=== PATIENT | male | born 1965 | race Caucasian/White ===

== ENCOUNTER 2016-12-10 23:49 | Emergency (ER) | payer SELFPAY ==
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
== END 2016-12-11 01:35 | disposition home or self-care (01) ==
LOC: ER 23:49
PROC: 0HQ1XZZ Repair Face Skin, External Approach (ICD-10-PCS; principal; 2016-12-10)
DX: S01.81XA Laceration without foreign body of other part of head, initial encounter (principal); S05.12XA Contusion of eyeball and orbital tissues, left eye, initial encounter; S10.93XA Contusion of unspecified part of neck, initial encounter; F17.210 Nicotine dependence, cigarettes, uncomplicated; Y04.0XXA Assault by unarmed brawl or fight, initial encounter

== ENCOUNTER 2017-01-06 09:43 | Inpatient (IN) | payer OTHER ==
[~2017-01-06] VITALS: Ht 172.7 cm; Wt 79.5 kg
--- NOTE | ~2017-01-06 | INDIVTXPLN ---
"PATIENT: PUNEET FIGUEROA | | [facility] UNIT #: [id number] | [address] AGE/SEX: 51 M : [birth year] | [address] | [place] [address] ADMIT/REG DATE: 01/06/17 | ROOM: A[facility] LOC: ADTC | ADTC | Individualized Treatment Plan Date: 01/16/17 Problem Statement/Issue Identified: I have had difficult times with relationships. Goal: I want to be able to have healthy relationships. Objectives/Activities to achieve goal: 1. I will read and fill out a relationship packet and share it with my counselor. Due Date:01/23/17 Complete: Incomplete: Client signature Date Counselor signature Date Outcome/Measurement of Progress Towards Goal: Counselor's signature Date "
--- NOTE | ~2017-01-06 | INDIVTXPLN ---
"PATIENT: PUNEET FIGUEROA | | [facility] UNIT #: [id number] | [address] AGE/SEX: 51 M : 61 | [address] | [place] [address] ADMIT/REG DATE: 01/06/17 | ROOM: A.[facility] LOC: ADTC | ADTC | Individualized Treatment Plan Date: 01/27/17 Problem Statement/Issue Identified: I struggle with wanting to control everything around me even thing I can't. Goal: I want to be able to let go of things I can't control. Objectives/Activities to achieve goal: 1. I will read and high lite things I relate to in a letting go of control packet and share it with my counselor. Due Date:01/30/17 Complete: Incomplete: Client signature Date Counselor signature Date Outcome/Measurement of Progress Towards Goal: Counselor's signature Date "
--- NOTE | ~2017-01-06 | INDIVTXPLN ---
"PATIENT: PUNEET FIGUEROA | | [facility] UNIT #: [id number] | [address] AGE/SEX: 51 M : 61 | [address] | [place] [address] ADMIT/REG DATE: 01/06/17 | ROOM: [facility] LOC: ADTC | ADTC | Individualized Treatment Plan Date: 01/09/17 Problem Statement/Issue Identified: I continue to use drugs in spite of the negative consequences I am experiencing. Goal: I want to learn about my addiction and identify consequences of my use and learn to work the AA/NA program. Objectives/Activities to achieve goal: 1. I will read and fill out the Getting Started packet, identifying my feelings about being in treatment and identifying things I do now and things I need to work on as evidenced by his progress notes. Due Date:01/09/17 Complete: Incomplete: 2. I will read a Step 1 booklet and fill out a Step 1 packet identifying 20+ ways I have hurt others and compromised my values (page 10 - 11 of Step 1). This will also help me see how I am powerless and that my life has become unmanageable. I will share it with my counselor and selected parts in group as evidenced by individual and group notes. Due Date:01/13/17 Complete: Incomplete: 3. I will talk at a minimum of 2 meetings a week and get a phone number of a male sponsor I can call while I am in treatment on weekends. I will report my progress to my counselor as evidenced by individual notes. Due Date: Ongoing Complete: Incomplete: 4. I will create gratitude list and add one thing to it each day. Due Date: Ongoing Complete: Incomplete: Client signature Date Counselor signature Date Outcome/Measurement of Progress Towards Goal: Counselor's signature Date "
--- NOTE | ~2017-01-06 | CLPRLASSUM ---
"PATIENT: PUNEET FIGUEROA | | [facility] UNIT #: [id number] | [address] AGE/SEX: 51 M : 61 | [address] | [place] [address] ADMIT/REG DATE: 01/06/17 | ROOM: [facility] LOC: ADTC | ADTC | Client Problem List/Assessment Summary Date: 01/09/17 Problems identified by the client: Drug use, control issues, family issues and relapse issues. Problems identified by significant others: Client did not sign any releases for family at this time. Client's Strengths: Wants to stay sober. Problem List: Code: T Client needs to recognize difference between boundaries and controlling while increasing knowledge of the disease and the recovery process. Code: T Client has learned to deny or stuff feelings; needs to learn to identify and process feelings with safe people to acquire the necessary skills to maintain intermediate accountant sobriety. Code: T Client is experiencing family &/or significant other discord and distancing as a result of past alcohol &/or drug usage. Code: T Client needs to identify relapse warning signs and develop a plan to deal with them as they arise. Code Núñez: T: to be addressed during course of treatment O: problem noted, expected to resolve itself with abstinence--specific tx plan not required R: problem noted, will be referred upon discharge PRIMARY COUNSELOR: Hoang Dill, PHUC, LADC, CSAT"
--- NOTE | ~2017-01-06 | TXPLANREV ---
"PATIENT: PUNEET FIGUEROA | | [facility] UNIT #: [id number] | [address] AGE/SEX: 51 M : 61 | [address] | [place] [address] ADMIT/REG DATE: 01/06/17 | ROOM: [facility] LOC: ADTC | ADTC | Treatment Plan/Staffing Review Date: 01/23/17 Treatment plan was reviewed and determined appropriate as written: Yes Treatment plan was reviewed and the following changes/addition/deletions are necessary: No changes Discharge plans were reviewed and determined appropriate as previously documented: Yes Discharge plans were reviewed and determined to be as follows: Client is scheduled to discharge on 02/03/17 and we have discussed a 3/4 way house or half way house. Will continue to discuss. Other pertinent issues discussed during this staffing review include: Client continue to be open to looking at things he does not agree with. Staff Present: Mayuri Grijalva, Leah Peters PRIMARY COUNSELOR: Hoang Dill, PHUC, LADC, CSAT Client Signature Counselor Signature Date Time "
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
--- NOTE | ~2017-01-06 | INDIVTXPLN ---
"PATIENT: PUNEET FIGUEROA | | [facility] UNIT #: [id number] | [address] AGE/SEX: 51 M : 61 | [address] | [place] [address] ADMIT/REG DATE: 01/06/17 | ROOM: A.[facility] LOC: ADTC | ADTC | Individualized Treatment Plan Date: 01/20/17 Problem Statement/Issue Identified: Goal: Objectives/Activities to achieve goal: 1. Due Date: Complete: Incomplete: 2. Due Date: Complete: Incomplete: 3. Due Date: Complete: Incomplete: Client signature Date Counselor signature Date Outcome/Measurement of Progress Towards Goal: Counselor's signature Date "
--- NOTE | ~2017-01-06 | TXPLANREV ---
"PATIENT: PUNEET FIGUEROA | | [facility] UNIT #: [id number] | [address] AGE/SEX: 51 M : 61 | [address] | [place] [address] ADMIT/REG DATE: 01/06/17 | [facility]: [facility] | ADTC | Treatment Plan/Staffing Review Date: 01/16/17 Treatment plan was reviewed and determined appropriate as written: Yes Treatment plan was reviewed and the following changes/addition/deletions are necessary: No changes, client is working on step one. Discharge plans were reviewed and determined appropriate as previously documented: Yes Discharge plans were reviewed and determined to be as follows: Client is tentively scheduled to discharge on 02/03/17. An aftercare plan has not been discussed yet. Other pertinent issues discussed during this staffing review include: Client has had a positive attitude change since he first arrivwed in treatment. He is open to looking at things from a different point of view. Staff Present: Leah Little Connie Strand PRIMARY COUNSELOR: Hoang Dill, PHUC, LADC, CSAT Client Signature Counselor Signature Date Time "
--- NOTE | 2017-01-06 13:54 | NUR ---
ADMISSION NOTE Rights/Responsibilities: Copy given and explained to client. Signed and accepted by client. Client oriented to physical lay out of the ADTC unit, given Big Book and admission packet. A Patrick was assigned. Jimmy Client is a 51yr old single male. Referred to tx by probation. Lives in [place], [place]. DOC Meth, last used 11/24/16, 2 grams daily. No allergies, No meds. Sister will participate in tx. Was searched no contraband found. Initial paperwork given and guidelines gone over. Doctor has been notified.
--- NOTE | 2017-01-06 14:45 | NUR ---
I.S. 1 hr/Client shared he was suppose to be in OP but his UA's must not have been droping as he thinks it takes longer than three days for meth to get out of your system. First tx and is somewhat resistent to share about family or has nothing to work on. He is here just to jump through jose.
--- NOTE | 2017-01-06 16:00 | NUR ---
RECOVERY 101 1 HR/ Clients all filled out consequences list to look at each chemical they have ever used and how many consequences were experiences with each drug. Many shared what they learned from this and their top 3 consequences, they also discussed early stage symptoms of their addiction. Counselor asked the group what would be a definition that includes all stages and this was discussed as well at stages of Denial, Anger, Compliance/defiance, admittance, acceptance and Surrender.
--- NOTE | 2017-01-06 20:38 | NUR ---
Education: 1 Hour. Client attended lecture on "Adult Children of Alcoholics" presented by staff.
--- NOTE | 2017-01-06 22:58 | NUR ---
Tech Note: Client played a game for rec and attended the on unit N.A.Meeting. SE:_Coming to treatment.
--- NOTE | 2017-01-07 04:18 | NUR ---
Bed Note: Client was in bed, and motionless at all three bed checks.
--- NOTE | 2017-01-07 11:30 | NUR ---
GROUP 1.5 HRS. 1:10 Client was oriented to purpose and rules of group. Discussion included step 1 assignment and good-bye letter to addiction. This client was mostly quiet but did relate to peers as they shared about addiction and the consequences.
--- NOTE | 2017-01-07 13:12 | NUR ---
Tech Note: Nutritional Services presented information for the 1:00 speaker meeting. Client is working on Getting Started.
--- NOTE | 2017-01-07 16:23 | NUR ---
Relapse Prevention, 10/18, 1.0 hours, Client attended and actively participated in relapse prevention education which focused on top 5 relapse triggers and how to avoid them.
--- NOTE | 2017-01-07 17:36 | NUR ---
Education Note: Topic was "[place] From Shame" presented by Chloe.
--- NOTE | 2017-01-07 22:49 | NUR ---
TECH NOTE: Client did crafts/beads for REC and attended on site AA meeting. SE: walk
--- NOTE | 2017-01-08 04:00 | NUR ---
BED NOTE: Client was in bed, motionless with eyes closed all bed checks.
--- NOTE | 2017-01-08 10:43 | NUR ---
Rae notes: Client is working on BB and mtg with vish
--- NOTE | 2017-01-08 11:30 | NUR ---
GROUP 1.5 HRS. 1:9 Group discussion included step 1 assignments of identifying 15 examples of how betrayed values (pg. 10) and 10 specific examples of effects on others (pg. 11). This client fell asleep and was awakened and asked to stand. He was minimally involved and speaks softly under his breath.
--- NOTE | 2017-01-08 16:00 | NUR ---
Education 1 Hour: Client watched the video, "Marijuana" by Garland Ayon.
--- NOTE | 2017-01-08 17:24 | NUR ---
SPIRITUAL EDUCATION; Client's took [employer] again this week and improved their presentations took on new participants to replace those who weren't here this week, and presented their refined skits to those staff available to watch. Excellent presentations!
--- NOTE | 2017-01-08 19:06 | NUR ---
Education 1HR: Clt attended lecture given by counselor on boundaries.
--- NOTE | 2017-01-08 22:13 | NUR ---
Tech note : Client went for a long walk for rec and attended an onsite NA meeting. SE: Education
--- NOTE | 2017-01-09 04:04 | NUR ---
Bed note: Client was in bed motionless, with eyes closed at all bed checks.
--- NOTE | 2017-01-09 11:30 | NUR ---
AM GRP 1.5 HRS, Ratio 1:10/ Clt struggled to keep his mouth shut thru-out the grp. He has little side talking comments to say when most everyone is sharing. He is confrontive to a male peer, of whom he has several similarities, but does so in an angry manner.
--- NOTE | 2017-01-09 13:57 | NUR ---
I.S. 1 Hr/Client shared some of his GS packet and was very reluctqnt to share anything. He kept interupting and was asked to listen. He said Ok I will not say any more today. A couple minites later he interupted again so I asked him if he was a man of his word as he did not stay quiet and he got mad and left my office cutting the session short.
--- NOTE | 2017-01-09 14:08 | NUR ---
Information note/Clincyndie came back after leaving his session and aploigized and said he would work more on listening and be open minded.
--- NOTE | 2017-01-09 15:26 | NUR ---
Tech Note: Client participated in Spiritual Enrichment in the morning and went for an outdoor walk in the afternoon. Client stated that he is working on Step One.
--- NOTE | 2017-01-09 15:41 | NUR ---
Education 1 Hour: Client watched the video, "Doing a 4th and 5th Step" by Irene Lopez.
--- NOTE | 2017-01-09 19:11 | NUR ---
Education 1HR: Clt watched half of video "Pleasures Unwoven" with staff present.
--- NOTE | 2017-01-09 19:12 | NUR ---
Step education/1 hr/ Focus was on step 11 Sought through prayer and meditation to improve conscious contact with God,praying for his will for us and the power to carry that out. Each person completed a set of questions then we discussed. This person participated.
--- NOTE | 2017-01-09 23:04 | NUR ---
Tech note: Clt played a game for rec, attended GM and onsite AA mtg. SE was talking with peer.
--- NOTE | 2017-01-10 04:23 | NUR ---
Bed Note: Clt lay motionless in bed with eyes closed showing no distress at all bed checks.
--- NOTE | 2017-01-10 12:59 | NUR ---
Tech Note: Client is working on Step 1.
--- NOTE | 2017-01-10 13:00 | NUR ---
PEER REVIEWS 1 HR: Clt participated in peer reviews and took a risk to give open and honest feedback to those receiving a review.
--- NOTE | 2017-01-10 13:20 | NUR ---
Morning Group, /12 ratio, 1.5 hours, Client attended and actively participated in group. Client offered feedback to peers.
--- NOTE | 2017-01-10 15:32 | NUR ---
Education Note: Client watched 2nd half of Pleasure Unwoven.
--- NOTE | 2017-01-10 22:16 | NUR ---
Tech note : Client watched tv, played games with peers and walked to an offsite AA meeting.
--- NOTE | 2017-01-11 04:07 | NUR ---
Bed note: Client was in bed with eyes closed and no distress at all bed checks.
--- NOTE | 2017-01-11 16:26 | NUR ---
Tech Note: Client attended N.A.Panel and is working on Step 1. Client also went on a walk today.
--- NOTE | 2017-01-11 22:15 | NUR ---
Tech note : Client worked on WebNotes, Pickie or watched sports for rec this evening. Client walked to an offsite AA meeting.
--- NOTE | 2017-01-12 04:05 | NUR ---
Bed note: Client was in bed with eyes closed with no distress at all bed checks
--- NOTE | 2017-01-12 15:25 | HP ---
ADMIT: 01/06/2017 RM/LOC: Fritz [facility] MR#: [id number] [address] [facility] [address], [place] [id number] HUNG FIGUEROA [address] [place] [address] History and Physical SEX: M AGE: 51 : 1965 DATE OF SERVICE: CHIEF COMPLAINT: Chemical dependency. HISTORY OF PRESENT ILLNESS: Hung is a 51-year-old, single, white male, admitted to residential level treatment at [facility] on January 06, 2017. He is currently on probation for possession of meth charges from March 2016. He failed to go to intensive outpatient therapy and had dirty UAs while on probation, was subsequently referred to residential level treatment. Hung's drug of choice on admission is cocaine. He first started using cocaine at 23 years of age when he snorted it. He is extensively snorting, but by , he was doing IV. He states he did a teener to an 8 ball daily for approximately 7 years. States at 33 years of age, he quit doing cocaine and has not done it since. Second drug of choice is cannabis. He first started smoking pot at 13 years of age. Initially, it was on weekends. By [age], he was smoking 1 to 2 ounces of pot a week. States since 33, he only smokes 1 or 2 times a week. His last marijuana use was at 46 years of age. Third drug of choice is probably methamphetamines. He first started using meth at 46 years of age. He states he has been doing it daily off and on ever since. He normally uses it about 0.5 g 4-5 times a day. His last use was November 24, 2016. Fourth drug of choice is pain pills. He states he has had neck as well as numerous other surgeries including 8 elbow surgeries and facial reconstructions. States around 1998 to 1999, he would use pain pills on a daily basis. He states he would use 8-10 OxyContin or hydrocodone on a daily basis. He denies any other illicit drug use other than using acid around 20 times. He denies that alcohol is a significant problem for him, states he never really drinks, but he does admit to one DUI for drugs one DUI for alcohol. PAST MEDICAL HISTORY: Includes neck surgery, facial reconstructive surgeries, 5 right elbow and 3 left elbow surgeries. ILLNESSES: Include chronic pain in his neck and elbows. MEDICATIONS: None. ALLERGIES: NONE KNOWN. SOCIAL HISTORY: He is a 51-year-old, single, white male. He is a self- employed [employer], smokes a pack of cigarettes daily. He states he runs 2-3 miles a day. ADMIT: 01/06/2017 RM/LOC: Fritz [facility] MR#: [id number] [address] [place] [id number] HUNG FIGUEROA [address] [place] [id number] History and Physical SEX: M AGE: 51 : 1965 FAMILY HISTORY: Negative for heart attack, strokes, cancer, or drug and alcohol problems. REVIEW OF SYSTEMS: Remarkable for chronic elbow and neck pain. PHYSICAL EXAMINATION: VITAL SIGNS: He is 5 feet 8 inches with the weight of 79.5 kg, blood pressure 135/83 with pulse of 93, and temp 95.1. GENERAL APPEARANCE: A 51-year-old male who is alert and oriented, appears older than stated age. HEENT: Pupils are reactive. Extraocular muscles are intact. TMs are unremarkable. Oral exam was remarkable for multiple dental extractions. The remainder of his teeth are rotted off at the base. NECK: Without nodes or masses. HEART: Regular without murmur. LUNGS: Clear. ABDOMEN: Soft, nontender, benign. No obvious hepatosplenomegaly. and RECTAL: Deferred. EXTREMITIES: Reveal no clubbing, cyanosis, edema, tracks or splinter hemorrhages. NEUROLOGIC: Exam is grossly normal including light touch, strength, and DTRs. ASSESSMENT: 1. Stimulant use disorder, severe with history of IV use. 2. Cannabis use disorder, severe. 3. Opiate use disorder, moderate. 4. Tobacco dependency. 5. Chronic pain syndrome. 6. Increased risk for human immunodeficiency virus and hepatitis C and dental caries. PLAN: We will obtain HIV and hepatitis C testing on him. Offered vitamins, declined. We will proceed with drug and alcohol abuse dependency, treatment, and counseling. Further evaluation and management based on his course during hospitalization. Please see his hospital record for the details. Sami Yu MD/ [place] JOB #: [id number] CC: Sami Yu, Attending Physician NO FAMILY PHYSICIAN, Family Physician
--- NOTE | 2017-01-12 16:35 | NUR ---
Tech Note: Client attended congregational in the morning. Client stated that he is working on Step One.
--- NOTE | 2017-01-12 22:37 | NUR ---
tech note: Client attended onsite AA Panel & participated in Community Clean. Client watched tv. SE: meals.
--- NOTE | 2017-01-13 04:29 | NUR ---
tech note: client was motionless in no distress at all bed checks.
--- NOTE | 2017-01-13 10:17 | NUR ---
Tech Notes: Client is working on Step 1 and mtg with vish
--- NOTE | 2017-01-13 11:03 | NUR ---
Education Note: Client watched video for education today.
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
--- NOTE | 2017-01-13 11:30 | NUR ---
GROUP 1.5 HR/ 11:1 Clients heard peer share GS packet and this client was attentive and gave some feedback.
--- NOTE | 2017-01-13 15:54 | NUR ---
I.S. 1 Hr/Client shared the rest of his GS packet and did ok. Client shared how he has made some changes and it was obvious as he is will ing to look at thing more openly. Even shard some about family.
--- NOTE | 2017-01-13 16:00 | NUR ---
RECOVERY 101 1 HR/ All clients participated in discussing what are the fundamentals of what they learn at AA/NA meetings that will help them succeed in recovery such as meetings, sponsor, home group, working steps, service work, attending functions, slogans/acronyms as tools, etc. This client was involved.
--- NOTE | 2017-01-13 19:14 | NUR ---
Education: 1 Hour. Client attended "Communications" lecture presented by staff.
--- NOTE | 2017-01-13 23:30 | NUR ---
Client attended N.A.Meeting and went on a walk for rec. SE: Mike leaving healthy
--- NOTE | 2017-01-14 04:21 | NUR ---
Bed note: Client was in bed with eyes closed with no distress at all bed checks
--- NOTE | 2017-01-14 11:30 | NUR ---
GROUP 1.5 HRS. 1:9 Group discussion included issues of discharge planning and fear of leaving. This client was minimally involved except to share some knowledge of new peer JW.
--- NOTE | 2017-01-14 15:41 | NUR ---
Tech Note: Client participated in light stretching for monring exercise and went for an outdoor walk in the afternoon. Client followed programming.
--- NOTE | 2017-01-14 17:05 | NUR ---
Relapse Prevention, 10/18, 1.0 hours, Client attended and actively participated in relapse prevention education which focused on high risk situations.
--- NOTE | 2017-01-14 19:22 | NUR ---
Education note: 1 hour watched video "enabler".
--- NOTE | 2017-01-14 19:32 | NUR ---
education note: 1 hour lecture by [facility] on hiv/aid/std. plus clients wwere tested for HIV.
--- NOTE | 2017-01-14 22:07 | NUR ---
Tech note: Client went for a long walk for rec, participated in guided meditation and attended an onsite AA meeting.
--- NOTE | 2017-01-15 05:29 | NUR ---
Bed note : Client was in bed with eyes closed and no movement at all bed checks.
--- NOTE | 2017-01-15 13:26 | NUR ---
Tech Note: Outside speaker Federico Nice spoke at 1300. Client attended and is working on Step 1.
--- NOTE | 2017-01-15 17:22 | NUR ---
SPIRITUAL EDUCATION 1 HR. Topics today were clarifying the differences between spirituality and mormon, and playing the spiritual challenge game where they are asked thought provoking open ended questions. It is meant to inspire spiritual line of thought.
--- NOTE | 2017-01-15 22:41 | NUR ---
Tech Note : Client participated in rec by playing catch phrase and attended an onsite NA meeting.
--- NOTE | 2017-01-15 23:39 | NUR ---
Education: 1 Hour. Client attended "Disease Concept" presented by counselor.
--- NOTE | 2017-01-16 05:36 | NUR ---
Bed Note: Client was motionless with eyes closed at all bed checks.
--- NOTE | 2017-01-16 10:42 | NUR ---
Tech Note: Client participated in light stretching for morning exercise. Client stated that he is working on Step One.
--- NOTE | 2017-01-16 13:50 | NUR ---
PEER REVIEWS 1 HR: Clt participated in peer reviews and took a risk to give open and honest feedback to those receiving a review. The last half hour of group clients talked about loved ones and dying.
--- NOTE | 2017-01-16 15:47 | NUR ---
Education 1 Hour: Client heard from a member of the recovery community who shared his experience, strength and hope.
--- NOTE | 2017-01-16 16:37 | NUR ---
Step Education 1 hr/ Focus was on step 12 "having had a spiritual awakening", each person completed a set of questions on paper and then we discussed. This client participated.
--- NOTE | 2017-01-16 19:42 | NUR ---
Tech note: client was off the unit for [employer] banquet and speaker event
--- NOTE | 2017-01-17 12:00 | NUR ---
Group 1.5 hr/ 10:1 Clients all heard peers share feelings letters and this client was attentive, heard others talk about parents not being there for them and he did give some feedback.
--- NOTE | 2017-01-17 13:45 | NUR ---
Tech Note: Client with with group on an outdoor walk. Client is working on the [employer] Book.
--- NOTE | 2017-01-17 14:04 | NUR ---
Stefanie 1 Hr/Client shared his step one and did ok with it although he is struggling with seeing hios life as unmanagable. Working on relationships now.
--- NOTE | 2017-01-17 16:00 | NUR ---
Education Note: Client watched "How to Sabotage Your Treatment"
--- NOTE | 2017-01-17 22:56 | NUR ---
TECH NOTE: Client participated in reading [employer], watched tv/movies, attended optional off site AA meeting SE: phone.
--- NOTE | 2017-01-18 04:04 | NUR ---
Bed Note: Clt lay motionless in bed with eyes closed showing no distress at all bed checks.
--- NOTE | 2017-01-18 15:10 | NUR ---
Tech Note: Client is working on Feelings Letters and Relationships Packet.
--- NOTE | 2017-01-18 22:55 | NUR ---
TECH NOTE: Client played a game for REC, attended off site AA meeting, watched TV/movies SE: visits
--- NOTE | 2017-01-19 04:46 | NUR ---
Bed Note: Clt lay motionless in bed with eyes closed showing no distress at all bed checks.
--- NOTE | 2017-01-19 15:19 | NUR ---
Tech Note: Client participated in Big Book and stated that he is working on writing Feelings Letters and "Relationships." Client attended denominational.
--- NOTE | 2017-01-19 22:53 | NUR ---
Tech Note: Client attended A.A.Panel and participated in community clean. SE:All Day
--- NOTE | 2017-01-20 04:50 | NUR ---
Client was motionless with eyes closed at all bed checks.
--- NOTE | 2017-01-20 10:20 | NUR ---
Tech notes: Client is working on Graditiude list and mtg with vish
--- NOTE | 2017-01-20 15:47 | NUR ---
Morning Group, 1.5 hours, 10/19 Clients all participated in 2 family sculptures with role-playing, feedback, and how they related.
--- NOTE | 2017-01-20 16:04 | NUR ---
RECOVERY EDUCATION 1 HR. Todays topic was on denial; good, bad, and levels, life problems being 85 percent of recovery, and distorted thinking patterns that can keep us stuck.
--- NOTE | 2017-01-20 16:30 | NUR ---
Education note: Client watched video "[address]mare on [address]"
--- NOTE | 2017-01-20 16:36 | NUR ---
Stefanie 1Hr/Client shared his relationship packet and is still reluctant to share any family history as he says they are not here to defend their selves. Client is still having a difficult time letting things go and has to have the last word with other clients. He does ok in sesions but when he shares about interacting with peers he has very little tolerance.
--- NOTE | 2017-01-20 18:42 | NUR ---
Education: 1 Hour. Client attended "Feelings" lecture given by staff.
--- NOTE | 2017-01-20 22:07 | NUR ---
Tech note: Client participated in rec by playing [employer] outside. Client attended an onsite NA meeting.
--- NOTE | 2017-01-21 04:14 | NUR ---
BED NOTE: client was in bed, motionless with eyes closed all three bed checks.
--- NOTE | 2017-01-21 11:30 | NUR ---
GROUP 1.5 HRS. 1:9 Clients oriented new peer to purpose and rules of group. This client confronted a peer who was shuffling through his notebook while another peer was sharing assignment. This client was confronted that his interupting to confront peer was just as distracting as the other peer shuffling papers.
--- NOTE | 2017-01-21 16:16 | NUR ---
Relapse Prevention, 10/16 ratio, 1.0 hours, Client attended and actively participated in relapse prevention education which focused on personal reactions to high risk situtations such as personal reactions vs. personal responses, addictive thinking, irresponsible thinking, addictive behavior, irresponsible behavior, instant gratification, and emotional consequences to thoughts and actions.
--- NOTE | 2017-01-21 16:31 | NUR ---
Tech Note: Client listened to speaker Sami share his experience, strength and hope. Client is working on a Relationship pkt.
--- NOTE | 2017-01-21 19:24 | NUR ---
Education : 1 hour lecture given by counselor on feelings.
--- NOTE | 2017-01-21 22:13 | NUR ---
Tech note: Client played catchphrase for rec, participated in guided meditation and attended AA meeting. SE:game played for rec
--- NOTE | 2017-01-22 04:22 | NUR ---
Bed note: client was in bed with eyes closed and no distress at all bed checks.
--- NOTE | 2017-01-22 10:02 | NUR ---
Tech notes: Client is working on 12X12
--- NOTE | 2017-01-22 11:30 | NUR ---
AM GRP 1.5 HRS, Ratio 1:10/ Clt offered feedback, some very good, some not right on topic, but generally does have good things to say.
--- NOTE | 2017-01-22 11:54 | NUR ---
AM GROUP 10:1/1.5 HR: Client and peers participated in the ORIENTATION OF TWO NEW PEERS TO GROUP GUIDELINES, GOALS AND OBJECTIVES. All were involved as three group members processed their work from assignments. Multiple members related, several shared from their own experiences providing support and encouragement. This client given the opportunity to process the remaining pages of his GETTING STARTED packet. He shared, "What I would hear from my best friend," and identified good hearted, generious, but don't get on his bad side. Client said that what he doesn't like about himself is his tendency to use sarcasm which often hurts people's feelings. Client said he is working on this character defect.
--- NOTE | 2017-01-22 13:29 | NUR ---
Education note: Client watched video
--- NOTE | 2017-01-22 16:23 | NUR ---
SPIRITUAL EDUCATION 1 HR. Todays topic was the ADDICTIVE SELF vs. SPIRITUAL SELF. We held discussion on who we are in our addiction vs who we are in recovery and contrasted the two.
--- NOTE | 2017-01-22 18:32 | NUR ---
Education: 1 hour lecture on self esteem given by counselor
--- NOTE | 2017-01-22 22:47 | NUR ---
Client did beads for rec and attended N.A.Meeting. SE: All Day
--- NOTE | 2017-01-23 03:59 | NUR ---
Bed note: client was in bed with eyes closed and no distress at all bed checks.
--- NOTE | 2017-01-23 08:05 | NUR ---
Stefanie 1 Hr/Client shared more of his relationship packet and is still struggling with looking at how he has hurt his family and how his life is unmanagable. Client at first refused to sign a release to his sister and then calmed down and did. Client said his new room mate snores and talks loud in his sleep. He did appear to be mad or tired or both how ever he opened up to looking at things even though he does not believe his life is unmanagable.
--- NOTE | 2017-01-23 11:25 | NUR ---
AM GRP 1.5 HRS, Ratio 1:10/ Clt offered feedback, some very good, some not right on topic, but generally does have good things to say.
--- NOTE | 2017-01-23 15:24 | NUR ---
Tech Note: Client participated in Spiritual Enrichment in the morning and went for an outdoor walk after lunch. Client stated that he is working on writing Feelings Letters.
--- NOTE | 2017-01-23 16:15 | NUR ---
Education 1 Hour: Client heard a presentation on cross addiction.
--- NOTE | 2017-01-23 17:00 | NUR ---
FAMILY EDUCATION 3 HRS. Client attended alone and took part in the discussion on the disease concept. Client shared chemical history and the consequences.
--- NOTE | 2017-01-23 23:01 | NUR ---
TECH NOTE: Client did newcommer bookmarks for REC, participated in guided meditation, and attended AA meeting. SE: family
--- NOTE | 2017-01-24 01:20 | NUR ---
1 HR EDUCATION: Client watched a video "Say Yes to Life" by Father Adonis Orta
--- NOTE | 2017-01-24 04:40 | NUR ---
Bed Note: CLt lay motionless in bed with eyes closed showing no distress at all bed checks.
--- NOTE | 2017-01-24 14:52 | NUR ---
PEER REVIEWS 1.5 HRS: Clt participated in peer review process and took a risk to give open and honest feedback.
--- NOTE | 2017-01-24 16:19 | NUR ---
Tech Note: Clt watched "Relapse" for afternoon video. Clt is working on Spirituality.
--- NOTE | 2017-01-24 22:39 | NUR ---
Tech note: Client watched tv and movies. Client attended an offsite AA meeting.
--- NOTE | 2017-01-25 05:19 | NUR ---
Bed note : Client was in bed motionless with eyes close at all bed checks.
--- NOTE | 2017-01-25 15:35 | NUR ---
Tech Note: Client attended A.A.Meeting at [facility] and [place] and then helped with the clubhouse cleaning, ate lunch, and listened to a speaker. Client is working on BB and serenity
--- NOTE | 2017-01-25 20:42 | NUR ---
tech note: Client played a game for recreation & attended offsite AA meeting. Client walked the halls by himself. SE: Spring Clean Up.
--- NOTE | 2017-01-26 05:20 | NUR ---
Bed note: Client was in bed motionless with eyes closed at all bed checks.
--- NOTE | 2017-01-26 16:19 | NUR ---
TECH NOTE: Client participated in Chapter 5 of Big Book study, attended mandaeism and watched tv/movies
--- NOTE | 2017-01-26 22:55 | NUR ---
tech note: client attended AA Panel & participated in Community Clean. SE: All Day.
--- NOTE | 2017-01-27 04:36 | NUR ---
Bed Note: Clt lay motionless in bed with eyes closed showing no distress at first two bed checks. The third bed check clt was awake and came out of room.
--- NOTE | 2017-01-27 04:46 | NUR ---
tech note: client got up after 0430 & walked by the tech station [employer].He went and got his coat on & was heading outside to smoke. He was told by tech that he can't be up out of his room until 0500. Client went outside anyway & smoked.
--- NOTE | 2017-01-27 11:12 | NUR ---
Tech notes: Client is working on Relapse prevention
--- NOTE | 2017-01-27 11:30 | NUR ---
GROUP 1.5 HR/ 9:1 Clients all heard peers share packets/shame booklet and this client would make remarks under his breath, sometimes seemed to be relating but other times could of been sarcasm?
--- NOTE | 2017-01-27 15:39 | NUR ---
Education note: Client attended speaker for education, Xenia on Tobacco
--- NOTE | 2017-01-27 15:59 | NUR ---
I.S. 1 Hr/Client shared he wants a new counselor as this one does not listen to him and falls asleep. This client is impossible to fall asleep with as he finds reasons not ot do what is asked. He refused to talk about the past and his sister stated he is homeless and she will not let him live with her any more. Client thinks he is being punished for not knowing he could not leave his room before 5:00 am. He can't smoke today because he did not follow redirection when he was told he can not go out side to smoke before 5;[address]. Client is going through the motions and give minimal answers if he will answer questions. Client was given the letting go of control packet for his next assignment. He could or would not answer what he is willing to work on or what he wants from his counselor.
--- NOTE | 2017-01-27 18:13 | NUR ---
Education: 1 hour lecture given by counselor on "forgiveness"
--- NOTE | 2017-01-27 20:47 | NUR ---
FAMILY EDUCATION 3 HRS. GROUP 2 HRS. 1:5 Client attended alone and took part in the discussion on the family roles, codependency and detachment. Client mumbled under his breath but refused to offer feedback to peers and families who processed feelings letters. Peers discussed relationships with their dads but again this client declined comment. He then complained about having to come to treatment and resentment about being here.
--- NOTE | 2017-01-27 22:23 | NUR ---
Tech note: client attended family group. SE; All day
--- NOTE | 2017-01-28 04:14 | NUR ---
Bed note: Client was in bed with eyes closed and no distress at all bed checks.
--- NOTE | 2017-01-28 11:30 | NUR ---
GROUP 1.5 HRS. 1:9 Clients participated in orienting new peer to purpose and rules. Discussion included discharge plans and the importance of aftercare plan. Peer processed HOW TO GET STARTED IN TREATMENT assignment.
--- NOTE | 2017-01-28 13:11 | NUR ---
Tech Note: Client participated in light stretching for morning exercise and went for an outdoor walk in the afternoon.
--- NOTE | 2017-01-28 13:11 | NUR ---
Tech Note: Client interviewed with a [facility].
--- NOTE | 2017-01-28 13:34 | NUR ---
Education One Hour: Client heard a presentation on Sexually Transmitted Disease.
--- NOTE | 2017-01-28 15:53 | NUR ---
Relapse Prevention Education, 1.0 hours, Client attended and actively participated in relapse prevention education which focused on a Relapse Prevention Quiz and discussion over the answers.
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
--- NOTE | 2017-01-28 20:27 | NUR ---
educatio note: 1 hour lecture by counselor on" what rosenberg are you willing to pay"
--- NOTE | 2017-01-28 22:34 | NUR ---
Tech note: Client attended the Alumni meeting, participated in guided meditation and attended an onsite AA meeting. SE; Meeting with [facility]
--- NOTE | 2017-01-29 04:56 | NUR ---
Bed note: Client was in bed with eyes closed and motionless at all bed checks.
--- NOTE | 2017-01-29 10:36 | NUR ---
Tech notes: Client is working on Letting go of control
--- NOTE | 2017-01-29 12:35 | NUR ---
Education note: Client had education by [facility]
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
--- NOTE | 2017-01-29 14:12 | NUR ---
DISCHARGE NOTE Client was asked to leave tx, all personal belongings were sent with.
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
== END 2017-01-29 14:13 | disposition home or self-care (01) | DRG 895 ==
LOC: ADTC 11:08
PROVIDERS: ADMIT Family Medicine
PROC: HZ34ZZZ Individual Counseling for Substance Abuse Treatment, Interpersonal (ICD-10-PCS; principal; 2017-01-06)
PROC: HZ43ZZZ Group Counseling for Substance Abuse Treatment, 12-Step (ICD-10-PCS; principal; 2017-01-06)
DX: F15.20 Other stimulant dependence, uncomplicated (principal); F11.20 Opioid dependence, uncomplicated; F12.20 Cannabis dependence, uncomplicated; F17.210 Nicotine dependence, cigarettes, uncomplicated; K02.9 Dental caries, unspecified; M25.521 Pain in right elbow; M25.522 Pain in left elbow; M54.2 Cervicalgia; G89.4 Chronic pain syndrome; Z72.89 Other problems related to lifestyle; Z91.19 Patient's noncompliance with other medical treatment and regimen; Z65.3 Problems related to other legal circumstances

== ENCOUNTER 2017-02-11 20:19 | Emergency (ER) | payer SELFPAY ==
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
== END 2017-02-11 21:01 | disposition home or self-care (01) ==
LOC: ER 20:19
DX: I10 Essential (primary) hypertension (principal); F17.210 Nicotine dependence, cigarettes, uncomplicated